=== PATIENT | male | born 1980 | race American Indian/Alaskan Native ===

== ENCOUNTER 2017-09-26 19:46 | Emergency (ER) | payer BC ==
[2017-09-26 21:02] VITALS: BP 128/79; PULSE 66; RESP 18; TEMP 98.8; O2SAT 100
--- NOTE | 2017-09-26 21:55 | ED PDOC ---
HPI: CCC, URI, Sore Throat Time Seen by Provider: 09/26/17 21:06 Chief Complaint (Nursing): ENT Problem Chief Complaint (Provider): Throat Swelling History Per: Patient History/Exam Limitations: no limitations Onset/Duration Of Symptoms: Hrs (x2) Current Symptoms Are (Timing): Still Present Additional Complaint(s): 37 year old male with no significant past medical history, who presents to the ED for evaluation after a choking episode x2 hours. Patient states he choked on a pieced of crusty bread 2 hours ago, but was able to eject the food bolus. Says he feels like there is swelling present in the back of his throat. Patient is able to speak normally and swallow saliva, but describes a sense of heaviness and feeling of throat swelling when he does swallow. PMD: None provided Past Medical History Reviewed: Historical Data, Nursing Documentation, Vital Signs Vital Signs: Last Vital Signs Temp 98.8 F 09/26/17 20:59 Pulse 66 09/26/17 20:59 Resp 18 09/26/17 20:59 BP 128/79 09/26/17 20:59 Pulse Ox 100 09/26/17 23:35 - Medical History PMH: No Chronic Diseases - Surgical History Surgical History: No Surg Hx - Family History Family History: States: Unknown Family Hx - Social History Current smoker - smoking cessation education provided: No Alcohol: None Drugs: Denies - Allergies Allergies/Adverse Reactions: Allergies Allergy/AdvReac Type Severity Reaction Status Date / Time No Known Allergies Allergy Verified 09/26/17 20:59 Review of Systems ROS Statement: Except As Marked, All Systems Reviewed And Found Negative ENT: Positive for: Throat Pain Physical Exam - Reviewed Nursing Documentation Reviewed: Yes Vital Signs Reviewed: Yes - Physical Exam Appears: Positive for: Non-toxic, No Acute Distress (speaking normally, no drooling) Head Exam: Positive for: ATRAUMATIC, NORMAL INSPECTION, NORMOCEPHALIC Skin: Positive for: Normal Color, Warm, Dry. Negative for: Rash Eye Exam: Positive for: EOMI, Normal appearance, PERRL ENT: Positive for: Normal ENT Inspection Neck: Positive for: Normal, Painless ROM, Supple Cardiovascular/Chest: Positive for: Regular Rate, Rhythm. Negative for: Murmur Respiratory: Positive for: Normal Breath Sounds. Negative for: Respiratory Distress Gastrointestinal/Abdominal: Positive for: Normal Exam, Bowel Sounds, Soft. Negative for: Tenderness Back: Positive for: Normal Inspection. Negative for: L CVA Tenderness, R CVA Tenderness, Vertebral Tenderness Extremity: Positive for: Normal ROM. Negative for: Pedal Edema, Deformity Neurologic/Psych: Positive for: Alert, Oriented (x3). Negative for: Motor/ Sensory Deficits - ECG O2 Sat by Pulse Oximetry: 100 (RA) Pulse Ox Interpretation: Normal Medical Decision Making Medical Decision Making: Time: 21:26 Initial Impression: 37 y/o male with throat pain in setting of choking episode on food bolus Initial Plan: --CT Neck Soft Tissue --Reevaluation CT neck soft tissue FINDINGS: Nasopharynx: Unremarkable. Oropharynx: Unremarkable. No significant tonsillar enlargement. Hypopharynx: There is a small bubble of air adjacent to the left piriform sinus possibly a diverticulum, image 51 series 2. Larynx: Unremarkable. Normal epiglottis. Trachea: Unremarkable. Retropharyngeal space: Unremarkable. Submandibular/parotid glands: Unremarkable. Glands are normal in size. Thyroid: Unremarkable. No enlarged or calcified nodules. Bones/joints: No acute fracture. Soft tissues: Unremarkable. Vasculature: No acute findings. Lymph nodes: Asymmetric soft tissue, round density adjacent to the left cricoid cartilage of uncertain clinical significance. Possible lymph node measuring 1.6 x 0.9 by 1.4 cm. Image 53 series 2. Lung apices: Unremarkable as visualized. There is no evidence of a ingested foreign body. IMPRESSION: No acute findings. No foreign body. Round soft tissue density adjacent to left cricoid cartilage. Possible small lymph node. Possible left piriform sinus diverticulum. Patient is stable for discharge. Diagnosis is a choking episode. Results of CT explained to patient in detail who expressed complete understanding. Scribe Attestation: Documented by Siddharth Roberts, acting as a scribe for Wyatt Bond MD. Provider Scribe Attestation: All medical record entries made by the Scribe were at my direction and personally dictated by me. I have reviewed the chart and agree that the record accurately reflects my personal performance of the history, physical exam, medical decision making, and the department course for this patient. I have also personally directed, reviewed, and agree with the discharge instructions and disposition. Disposition - Clinical Impression Clinical Impression: Choking due to food in larynx - Patient ED Disposition Is Patient to be Admitted: No - Disposition Disposition: Routine/Home Disposition Time: 23:30 Condition: STABLE Instructions: Choking Forms: [facility] (Mongolian)
--- NOTE | 2017-09-26 23:12 | CT ---
EXAM: CT Neck Without Intravenous Contrast CLINICAL HISTORY: 37 years old, male; Pain; Painful swallowing; Patient HX: Patient states: He choked on a piece of bread tonight; Additional info: R/O retained food bolus TECHNIQUE: Axial computed tomography images of the neck without intravenous contrast. All CT scans at this facility use one or more dose reduction techniques, viz.: automated exposure control; ma/kV adjustment per patient size (including targeted exams where dose is matched to indication; i.e. head); or iterative reconstruction technique. Coronal and sagittal reformatted images were created and reviewed. COMPARISON: No relevant prior studies available. FINDINGS: Nasopharynx: Unremarkable. Oropharynx: Unremarkable. No significant tonsillar enlargement. Hypopharynx: There is a small bubble of air adjacent to the left piriform sinus possibly a diverticulum, image 51 series 2. Larynx: Unremarkable. Normal epiglottis. Trachea: Unremarkable. Retropharyngeal space: Unremarkable. Submandibular/parotid glands: Unremarkable. Glands are normal in size. Thyroid: Unremarkable. No enlarged or calcified nodules. Bones/joints: No acute fracture. Soft tissues: Unremarkable. Vasculature: No acute findings. Lymph nodes: Asymmetric soft tissue, round density adjacent to the left cricoid cartilage of uncertain clinical significance. Possible lymph node measuring 1.6 x 0.9 by 1.4 cm. Image 53 series 2. Lung apices: Unremarkable as visualized. There is no evidence of a ingested foreign body. IMPRESSION: No acute findings. No foreign body. Round soft tissue density adjacent to left cricoid cartilage. Possible small lymph node. Possible left piriform sinus diverticulum.
== END 2017-09-26 23:42 | disposition home or self-care (01) ==
LOC: H.ER 19:46
DX: T17.320A Food in larynx causing asphyxiation, initial encounter (principal)

== ENCOUNTER 2018-02-14 16:40 | Emergency (ER) | payer BC ==
--- NOTE | 2018-02-14 17:50 | ED PDOC ---
Syncope/Near Syncope/Dizziness Time Seen by Provider: 02/14/18 17:20 Chief Complaint (Nursing): Dizziness/Lightheaded History Per: Patient Onset/Duration Of Symptoms: Other ( 1week) Current Symptoms Are (Timing): Intermittent Episodes Additional Complaint(s): Intermittent episodes of dizziness/lightheadedness when pressing on left side of neck. Pt states he feels mass left side of neck when swallowing x 1 month. Denies chest pain or palpitations. No LOC. Has had outpt w/u including MRI/MRA head and thyroid studies which were nl. Past Medical History Vital Signs: Last Vital Signs Temp 98.3 F 02/14/18 16:50 Pulse 62 02/14/18 16:50 Resp 20 02/14/18 16:50 BP 124/87 02/14/18 16:50 Pulse Ox 100 02/14/18 16:50 - Medical History PMH: No Chronic Diseases - Family History Family History: States: Unknown Family Hx - Allergies Allergies/Adverse Reactions: Allergies Allergy/AdvReac Type Severity Reaction Status Date / Time No Known Allergies Allergy Verified 02/14/18 16:57 Review of Systems ROS Statement: Except As Marked, All Systems Reviewed And Found Negative ENT: Positive for: Other (Left neck mass) Neurological: Positive for: Dizziness Physical Exam - Reviewed Nursing Documentation Reviewed: Yes Vital Signs Reviewed: Yes - Physical Exam Appears: Positive for: Non-toxic, No Acute Distress Head Exam: Positive for: ATRAUMATIC, NORMAL INSPECTION, NORMOCEPHALIC Skin: Positive for: Normal Color, Warm, DRY Eye Exam: Positive for: EOMI, Normal appearance, PERRL ENT: Positive for: Normal ENT Inspection Neck: Positive for: Normal (No masses), Painless ROM Cardiovascular/Chest: Positive for: Regular Rate, Rhythm Respiratory: Positive for: CNT, Normal Breath Sounds Gastrointestinal/Abdominal: Positive for: Normal Exam, Soft Back: Positive for: Normal Inspection Extremity: Positive for: Normal ROM Neurologic/Psych: Positive for: Alert, Oriented. Negative for: Motor/Sensory Deficits - Laboratory Results Result Diagrams: 02/14/18 18:16 02/14/18 18:16 - ECG O2 Sat by Pulse Oximetry: 100 Disposition - Clinical Impression Clinical Impression: Dizziness - Patient ED Disposition Is Patient to be Admitted: No - Disposition Referrals: Yara Adkins MD [Medical Doctor] - [facility] [Outside] Disposition: Routine/Home Disposition Time: 19:36 Condition: FAIR Instructions: Dizziness, Nonvertigo, (DC) Forms: [employer] (Bengali)
[2018-02-14 18:30] LABS: BASO # 0.1 K/uL (0.0-0.2); EOS # 0.2 K/uL (0.0-0.7); EOS % 3.5 % (0.0-4.0); HEMOGLOBIN 13.7 g/dL (12.0-18.0); LYMPH # 1.5 K/uL (1.0-4.3); LYMPH % 26.8 % (20.0-40.0); MEAN CELL VOLUME 81.1 fl (80.0-94.0); MEAN CORPUSCULAR HEMOGLOBIN 26.6 pg (27.0-31.0); MEAN CORPUSCULAR HGB CONC 32.7 g/dL (33.0-37.0); MEAN PLATELET VOLUME 9.3 fl (7.2-11.7); MONO # 0.5 K/uL (0.0-0.8); MONO % 9.1 % (0.0-10.0); NEUT # 3.3 K/uL (1.8-7.0); NEUT % 59.6 % (50.0-75.0); RBC 5.15 Mil/uL (4.40-5.90); RED CELL DISTRIBUTION WIDTH 13.8 % (11.5-14.5); WHITE BLOOD COUNT 5.5 K/uL (4.8-10.8)
[2018-02-14 18:39] LABS: ALB/GLOB RATIO 1.4 (1.0-2.1); ALBUMIN 4.4 g/dL (3.5-5.0); ALT/SGPT 26 U/L (21-72); AST/SGOT 41 U/L (17-59); BLOOD UREA NITROGEN 13 mg/dl (9-20); CALCIUM 9.5 mg/dL (8.4-10.2); GFR AFRICAN-AMERICAN > 60; GFR NON-AFRICAN AMERICAN > 60
[2018-02-14] MEDS ORDERED: Sodium Chloride 0.9% 50 ML IV ONE (18:47)
[2018-02-14] MEDS ORDERED: Iohexol 300 100 ML IJ ONE (18:47)
[2018-02-14 20:34] VITALS: BP 118/74; PULSE 88; RESP 16; TEMP 98; O2SAT 98
--- NOTE | 2018-02-15 10:23 | CT ---
Date of service: 02/14/2018 PROCEDURE: CT NECK WITH CONTRAST HISTORY: Mass left side COMPARISON: None TECHNIQUE: CT of the neck with intravenous contrast. Coronal and sagittal reformats generated. Intravenous contrast dose: 90 mL Omnipaque 300 Radiation dose: DLP 305.17 mGy-cm This CT exam was performed using one or more of the following dose reduction techniques: Automated exposure control, adjustment of the mA and/or kV according to patient size, and/or use of iterative reconstruction technique. FINDINGS: NASOPHARYNX: No mass or abnormal enhancement. SUPRAHYOID NECK: No mass or abnormal enhancement in the oropharynx, oral cavity, parapharyngeal space and retropharyngeal space. INFRAHYOID NECK: No mass or abnormal enhancement in the larynx, hypopharynx, and supraglottic space. Vocal cords intact. MASS: None. GLANDS: Parotid and submandibular glands unremarkable. Normal size thyroid gland, without nodule. LYMPH NODES: Normal. No lymphadenopathy. CERVICAL SPINE: No fracture or focal lesion. VASCULAR STRUCTURES: There is normal intravascular enhancement. OTHER FINDINGS: None. IMPRESSION: No mass or abnormal enhancement in the soft tissues of the neck. No pathologic lymphadenopathy. A preliminary report was provided by [facility].
== END 2018-02-14 20:33 | disposition home or self-care (01) ==
LOC: H.ER 16:40
DX: R42 Dizziness and giddiness (principal)
CPT/HCPCS: 70491; 80053; 82948; 85025; 99284; Q9967